=== PATIENT | female | born 1995 | race Caucasian/White ===

== ENCOUNTER 2021-08-21 15:25 | Outpatient (CLI) | payer MEDICAID, SELFPAY ==
--- NOTE | 2021-08-21 15:33 | RAD_ITS ---
EXAM: XR CERVICAL SPINE, 2 OR 3 VIEWS CLINICAL INDICATION: CERVICALGIA TECHNIQUE: Frontal and lateral views of the cervical spine. This report was created using [employer] technology. COMPARISON: None. FINDINGS: VERTEBRAE: The odontoid process is obscured by the overlying hard palate on the open mouth view. Therefore, it is not fully evaluated by plain film. There is altered curvature of the normal cervical lordosis. This can suggest neck strain. Preserved vertebral body height. No acute fracture. No spondylolisthesis. No significant facet arthropathy. DISC SPACES: Unremarkable. Disc spaces are maintained. SOFT TISSUES: Unremarkable. No prevertebral soft tissue widening. LUNG APICES: Clear. RAD/Cerv Spine 2 or 3 Views IMPRESSION: 1. The odontoid process is obscured by the overlying hard palate on the open mouth view. Therefore, it is not fully evaluated by plain film. 2. There is altered curvature of the normal cervical lordosis. This can suggest neck strain. Electronically Signed: Rob Cooper MD at 15:57 EST , Service support ,
== END 2021-08-21 23:59 | disposition short-term general hospital (02) ==
LOC: RAD 15:30
PROVIDERS: PCP Nurse Practitioner Adult Health; Referring Provider Nurse Practitioner Adult Health; Visit Provider Nurse Practitioner Adult Health
DX: M54.2 Cervicalgia (principal)
CPT/HCPCS: 72040